=== PATIENT | female | born 1980 | race African-American/Black ===

== ENCOUNTER 2019-11-08 14:04 | Observation (INO) ==
[2019-11-08 15:12] LABS: Basophils # 0.1 K/mcL (0.0-0.2); Basophils % 0.6 %; Eosinophils # 0.1 K/mcL (0.0-0.6); Hematocrit 42.6 % (35.3-44.9); Hemoglobin 13.4 g/dL (11.5-15.4); Immature Granulocytes % 0.5 % (0-4); Mean Corpuscular HGB Conc 31.5 g/dL (31.6-35.5); Mean Corpuscular Hemoglobin 28.8 pg (28.0-33.3); Mean Corpuscular Volume 91.6 fL (83.0-100.0); Monocytes # 0.5 K/mcL (0.0-1.3); Monocytes % 5.8 %; Neutrophils # 5.1 K/mcL (1.6-8.9); Platelet Count 267 K/mcL (140-400); Red Blood Count 4.65 M/mcL (3.82-4.97); Red Cell Distribution Width 12.5 % (11.5-14.5); Segmented Neutrophils % 58.1 %; White Blood Count 8.8 K/mcL (4.3-11.1)
[2019-11-08 15:17] LABS: Bilirubin,Urine Negative (Negative); Blood,Urine Negative (Negative); Clarity,Urine Cloudy (Clear); Color,Urine Yellow (Yellow); Glucose,Urine (UA) Normal (Normal); Ketones,Urine Negative (Negative); Leukocyte Esterase,Urine Small (Negative); Nitrite,Urine Positive (Negative); Protein,Urine Negative (Neg-Trace); Specific Gravity,Urine 1.019 (1.010-1.025); Urobilinogen,Urine Normal (Normal)
[2019-11-08 15:19] LABS: Bacteria,Urine Many per hpf (None-Few); Hyaline Casts,Urine None Seen per lpf (None-Few); Squamous Epithelial Cell,Urine Many per lpf (None-Few)
[2019-11-08 15:22] LABS: Activated Partial Thrombo Time 35.8 Seconds (26.0-36.0)
[2019-11-08 15:26] LABS: Amphetamine Screen,Urine Negative ng/mL (Cutoff=1000); Barbiturate Screen,Urine Negative ng/mL (Cutoff=200); Benzodiazepines Screen,Urine Negative ng/mL (Cutoff=200); Cannabinoid Screen,Urine Positive ng/mL (Cutoff = 50); Cocaine Screen,Urine Negative ng/mL (Cutoff= 300); Opiate Screen,Urine Negative ng/mL (Cutoff=300); Phencyclidine Screen,Urine Negative ng/mL (Cutoff=25)
[2019-11-08 15:35] LABS: Acetaminophen < 10 mcg/mL (10-20); Alanine Aminotransferase 133 Units/L (7-52); Albumin 3.9 g/dL (3.5-5.7); Albumin/Globulin Ratio 1.4 (1.1-2.2); Alkaline Phosphatase 52 Units/L (34-104); Aspartate Amino Transferase 87 Units/L (13-39); BUN/Creatinine Ratio 16 (6-26); Bilirubin,Total 0.3 mg/dL (0.3-1.0); Blood Urea Nitrogen 12 mg/dL (6-20); Calcium 8.9 mg/dL (8.6-10.3); Carbon Dioxide 26 mEq/L (23-29); Chloride 106 mEq/L (98-107); Ethanol < 10 mg/dL (Less than 10); Globulin 2.8 g/dL (2.4-3.5); Glucose 102 mg/dL (70-105); Osmolality,Calculated 282 (280-300); Potassium 4.2 mEq/L (3.5-5.1); Salicylate < 2.5 mg/dL (15.0-30.0); Sodium 136 mEq/L (136-145); Total Protein 6.7 g/dL (6.4-8.9); eGFR For African Americans > 60 (> 60); eGFR For Non-African Americans > 60 (> 60)
[2019-11-08 15:47] LABS: Thyroid Stimulating Hormone 0.802 mcIU/mL (0.340-5.600)
[2019-11-08] MEDS ORDERED: *HR* LORazepam 2 MG/ML VIAL IM PRN (17:38)
[2019-11-08] MEDS ORDERED: MOM Conc 10 ML UD.LIQ PO PRN (17:38)
[2019-11-08] MEDS ORDERED: haloperidoL 5 MG TABLET PO PRN (17:38)
[2019-11-08] MEDS ORDERED: *HR* LORazepam 1 MG TABLET PO PRN (17:38)
[2019-11-08] MEDS ORDERED: Mag Hydrox/Al Hydrox/Simeth 30 ML UDC PO PRN (17:38)
[2019-11-08] MEDS ORDERED: Haloperidol Lactate 5 MG/ML VIAL IM PRN (17:38)
[2019-11-08] MEDS: hydrOXYzine pamoate 25 MG CAPSULE PO PRN (20:44)
[2019-11-08] MEDS: Acetaminophen 325 MG TABLET PO PRN (20:44)
[2019-11-08] MEDS: traZODone 50 MG TABLET PO PRN (20:44)
[2019-11-09] MEDS: Nicotine 21 MG PATCH.TD24 TD SCH (13:23)
[2019-11-09] MEDS: hydrOXYzine pamoate 25 MG CAPSULE PO PRN (19:57)
[2019-11-09] MEDS: Acetaminophen 325 MG TABLET PO PRN (19:57)
[2019-11-09] MEDS: traZODone 50 MG TABLET PO PRN (19:57)
[2019-11-10] MEDS: Nicotine 21 MG PATCH.TD24 TD SCH (09:27)
[2019-11-10 10:20] VITALS: BP 127/84
== END 2019-11-10 12:30 | disposition home or self-care (01) ==
LOC: EMEROOARM 14:04 → 1ANU 14:04
PROVIDERS: ADMIT Psychiatry & Neurology Psychiatry; ATTEND Psychiatry & Neurology Psychiatry